=== PATIENT | male | born 1940 | race Caucasian/White ===

== ENCOUNTER 2017-07-03 17:52 | Emergency (ER) | payer OTHER ==
[2017-07-03 17:59] VITALS: RESP 16; TEMP 98.6
--- NOTE | 2017-07-03 18:21 | EDPHY ---
H & P Smoking Status: Former smoker Time Seen by Provider: 07/03/17 18:03 HPI/ROS: CHIEF COMPLAINT: Painful rash left leg x3 days HISTORY OF PRESENT ILLNESS: 76-year-old male in the ER via private vehicle complaining of painful rash to his left lower extremity for the past 3 days. No trauma. No new new paresthesia or sensory motor deficit as he has a history of chronic peripheral neuropathy. No intraoral lesions. No new medications. No genitalia lesions. No nausea vomiting or diarrhea. No ocular irritation. No chest pain no. No gingival bleeding. No melena or hematochezia. No genitalia rash. No urinary abnormality PRIMARY CARE PROVIDER: [facility] REVIEW OF SYSTEMS: A ten point review of systems was performed and is negative with the exception of the items mentioned in the HPI PAST MEDICAL & SURGICAL HISTORY: peripheral neuropathy SOCIAL HISTORY:nonsmoker PHYSICAL EXAM (Prior to examination, patient consented to physical exam, hands were washed and my usual and customary physical exam procedures followed) 1) GENERAL: Well-developed, well-nourished, alert and oriented. Appears to be in no acute distress. 2) HEAD: Normocephalic, atraumatic 3) HEENT: Pupils equal, round, reactive to light bilaterally. Sclera anicteric. No injection. Nasopharynx, oropharynx, clear, no lesions. 4) NECK: Full range of motion, no meningeal signs. 5) LUNGS: Clear auscultation bilaterally, no wheezes, no rhonchi, no retractions. 6) HEART: Regular rate and rhythm, no murmur, no heave, no gallop. 7) ABDOMEN: No guarding, no rebound, no focal tenderness, 8) MUSCULOSKELETAL: Moving all extremities 9) BACK: no visual or palpable abnormality. 10) SKIN: Left lower extremity: Patient has a nonblanching vasculitic appearing circumferential rash which is tender extending from the foot to the knee. Does not followed dermatomal distribution. Nonpruritic. Soft compartments. Does not appear consistent with cellulitis. Distal DP PT pulses present and brisk. Patient refuses to remove his pants and I am unable to evaluate past level of his knee. He does show me his contralateral leg to the level of the knee and this has no lesion. 11) Psychiatric: Patient is oriented X 3, there is no agitation. DIFFERENTIAL DIAGNOSIS: in no particular include but limited to infectious etiology, zoster, Garg-Vinay, vasculitis, endocarditis (Jose Carson) Constitutional: Initial Vital Signs Temperature (C) 37.0 C 07/03/17 17:57 Heart Rate 85 07/03/17 17:57 Respiratory Rate 16 07/03/17 17:57 Blood Pressure 134/84 H 07/03/17 17:57 O2 Sat (%) 98 07/03/17 17:57 O2 Delivery Mode Room Air Allergies/Adverse Reactions: clarithromycin [From Biaxin] Allergy (Verified 08/08/11 15:41) Home Medications: Medication Instructions Recorded Lanolin Alcohol/Mo/W.pet/[place] 1 cecile TP BID #115 cream..g. 07/03/17 [Eucerin Creme] MDM/Departure - MDM ED Course/Re-evaluation: This patient was also seen exam by secondary supervising physiician Dr. Kevin Bateman. No chest pain, dyspnea. Doubt endocarditis. (Jose Carson Liudmila) I also saw the patient in the emergency department. We reviewed the history of the rash in recent medications or illness. Examination shows what appears to be a vasculitis of a mostly flat capillary petechial type rash on the left lower leg to the knee. No other rash. Care is discussed with PA while the patient is in the department. We discussed treatment plan and importance of follow-up. (Kevin Bateman) - Depart Disposition: Home, Routine, Self-Care Clinical Impression: Rash Condition: Good Instructions: Acute Rash (ED) Additional Instructions: Return to emergency department if you developed worsening rash, if you develop rash or tenderness in your mouth, your eyes, vomiting, diarrhea, rash on your genitals or any other symptoms that concern you. Prescriptions: Lanolin Alcohol/Mo/W.pet/Acworth [Eucerin Creme] 1 cecile TP BID #115 cream..g. Referrals: [facility] [Other] - 07/06/17
[2017-07-03 19:08] LABS: % IMMATURE GRANULYOCYTES 0.2 % (0.0-1.1); ABSOLUTE IMMATURE GRANULOCYTES 0.01 10^3/uL (0.00-0.10); ADD DIFF? NO; ADD MORPH? NO; ADD SCAN? NO; ATYPICAL LYMPHOCYTE FLAG 60 (0-99); FRAGMENT RBC FLAG 0 (0-99); HEMATOCRIT 38.5 % (40.0-51.0); HEMOGLOBIN 13.4 g/dL (13.7-17.5); LEFT SHIFT FLG 0 (0-99); LIPEMIA HEMOLYSIS FLAG 90 (0-99); MEAN CELL HEMOGLOBIN 31.8 pg (27.9-34.1); MEAN CELL HEMOGLOBIN CONCENTR. 34.8 g/dL (32.4-36.7); MEAN CELL VOLUME 91.4 fL (81.5-99.8); MEAN PLATELET VOLUME 8.8 fL (8.7-11.7); PLATELET CLUMPS FLAG 0 (0-99); PLATELET COUNT 195 10^3/uL (150-400); RED BLOOD CELL COUNT 4.21 10^6/uL (4.40-6.38); RED CELL DISTRIBUTION WIDTH 13.1 % (11.5-15.2)
[2017-07-03 19:16] LABS: INR 1.13 (0.83-1.16); PROTIME(PATIENT) 14.4 SEC (12.0-15.0)
[2017-07-03 19:24] LABS: ALANINE AMINOTRANSFERASE 23 IU/L (21-72); ALKALINE PHOSPHATASE 65 IU/L (38-126); ANION GAP 11 mEq/L (8-16); ASPARTATE AMINOTRANSFERASE 17 IU/L (17-59); BILIRUBIN,TOTAL 0.4 mg/dL (0.1-1.4); BILIRUBIN-CONJUGATED 0.2 mg/dL (0.0-0.5); BILIRUBIN-UNCONJUGATED 0.2 mg/dL (0.0-1.1); CALCIUM 9.2 mg/dL (8.5-10.4); CARBON DIOXIDE 24 mEq/l (22-31); CHLORIDE 101 mEq/L (97-110); CREATININE 1.2 mg/dL (0.7-1.3); GLOMERULAR FILTRATION RATE 59; GLUCOSE 96 mg/dL (70-100); POTASSIUM 4.2 mEq/L (3.5-5.2); SEDIMENTATION RATE 9 MM/HR (0-20); SODIUM 136 mEq/L (134-144); TOTAL PROTEIN 6.3 g/dL (6.3-8.2)
[2017-07-03 20:08] VITALS: BP 141/86; PULSE 86; O2SAT 97
== END 2017-07-03 20:05 | disposition home or self-care (01) ==
DX: R21 Rash and other nonspecific skin eruption (principal); Z87.891 Personal history of nicotine dependence

== ENCOUNTER 2017-07-16 15:22 | Emergency (ER) | payer OTHER ==
[2017-07-16] MEDS ORDERED: HYDROCODONE/APAP 5/325 TAB ONE ×2 (16:24)
[2017-07-16] MEDS ORDERED: HYDROCODONE/APAP 5/325 TAB PO ONE (16:25)
[2017-07-16 16:40] LABS: % IMMATURE GRANULYOCYTES 0.3 % (0.0-1.1); ABSOLUTE IMMATURE GRANULOCYTES 0.02 10^3/uL (0.00-0.10); ADD DIFF? NO; ADD MORPH? NO; ADD SCAN? NO; ATYPICAL LYMPHOCYTE FLAG 20 (0-99); FRAGMENT RBC FLAG 0 (0-99); LEFT SHIFT FLG 0 (0-99); LIPEMIA HEMOLYSIS FLAG 90 (0-99); MEAN CELL HEMOGLOBIN 32.3 pg (27.9-34.1); MEAN CELL HEMOGLOBIN CONCENTR. 35.1 g/dL (32.4-36.7); MEAN PLATELET VOLUME 8.9 fL (8.7-11.7); PLATELET CLUMPS FLAG 20 (0-99); PLATELET COUNT 191 10^3/uL (150-400); RED BLOOD CELL COUNT 4.02 10^6/uL (4.40-6.38); RED CELL DISTRIBUTION WIDTH 13.6 % (11.5-15.2)
[2017-07-16 17:01] LABS: ANION GAP 11 mEq/L (8-16); CALCIUM 8.9 mg/dL (8.5-10.4); CARBON DIOXIDE 21 mEq/l (22-31); CHLORIDE 104 mEq/L (97-110); CREATININE 1.2 mg/dL (0.7-1.3); GLOMERULAR FILTRATION RATE 59; GLUCOSE 95 mg/dL (70-100); POTASSIUM 4.6 mEq/L (3.5-5.2); SODIUM 136 mEq/L (134-144)
--- NOTE | 2017-07-16 17:29 | EDPHY ---
H & P Stated Complaint: left leg swelling and pain Time Seen by Provider: 07/16/17 15:54 HPI/ROS: CHIEF COMPLAINT: Left calf pain and swelling HISTORY OF PRESENT ILLNESS: The patient presents to the ED with a several week history of left calf pain and swelling. The patient reportedly had a nonspecific rash to the lower extremity several weeks ago. He reportedly was seen at [facility] and had unremarkable laboratory testing done. He presents today secondary to ongoing pain. He denies chest pain or shortness of breath. He denies fever cough or congestion. The patient has not had regular follow-up with a primary care provider. He takes no regular medications. He does report a prior history of neuropathy. REVIEW OF SYSTEMS: A comprehensive 10 point review of systems is otherwise negative aside from elements mentioned in the history of present illness. Source: Patient - Personal History Current Tetanus Diphtheria and Acellular Pertussis (TDAP): Yes - Medical/Surgical History Hx Asthma: No Hx Chronic Respiratory Disease: Yes Hx Diabetes: No Hx Cardiac Disease: No Hx Renal Disease: No Hx Cirrhosis: No Hx Alcoholism: No Hx HIV/AIDS: No Hx Splenectomy or Spleen Trauma: No Other PMH: COPD. neuropathy - Social History Smoking Status: Former smoker - Physical Exam Exam: General Appearance: Elderly male, no acute distress Eyes: Pupils equal and round no pallor or injection ENT, Mouth: Mucous membranes moist Respiratory: There are no retractions, lungs are clear to auscultation Cardiovascular: Regular rate and rhythm Gastrointestinal: Abdomen is soft and nontender, no masses, bowel sounds normal Neurological: A&O, normal motor function, normal sensory exam, normal cranial nerves Skin: Faint rash consistent with vasculitis left lower extremity Musculoskeletal: Neck is supple nontender Extremities: Slight asymmetric calf tenderness, swelling and edema Constitutional: Initial Vital Signs Temperature (C) 36.6 C 07/16/17 15:35 Heart Rate 81 07/16/17 15:35 Respiratory Rate 16 07/16/17 15:35 Blood Pressure 157/97 H 07/16/17 15:35 O2 Sat (%) 98 07/16/17 15:35 O2 Delivery Mode Room Air Allergies/Adverse Reactions: clarithromycin [From Biaxin] Allergy (Verified 08/08/11 15:41) Home Medications: Medication Instructions Recorded Lanolin Alcohol/Mo/W.pet/[place] 1 cecile TP BID #115 cream..g. 07/03/17 [Mandy Beckman] Medical Decision Making - Diagnostics Imaging Results: Imaging Impressions Extremity Venous Study 07/16/17 17:23 Impression: No evidence of deep vein thrombosis. Findings discussed with Ezra Santillan 07/16/2017 at 17:54. ED Course/Re-evaluation: The patient presents to the ED for evaluation of left calf pain and swelling with a very nonspecific rash. The patient's D-dimer was slightly elevated. A stat lower extremity ultrasound has been ordered. The patient has no clinical evidence of arterial insufficiency or an infectious process. The patient was taken for a lower extremity ultrasound which is negative for DVT. At this point time I do feel the patient can manage his symptoms with Tylenol and ibuprofen. He has been referred to our on-call primary care provider he wishes to establish primary care. Recommendations are made for a repeat ultrasound in 2 weeks for any ongoing symptoms. Differential Diagnosis: Differential diagnosis considered includes DVT, cellulitis, vasculitis, abscess , arterial insufficiency - Data Points Laboratory Results: Laboratory Results 07/16/17 16:30 07/16/17 16:30 07/16/17 07/16/17 07/16/17 16:30 16:30 16:30 WBC 6.54 10^3/uL 10^3/uL (3.80-9.50) RBC 4.02 10^6/uL L 10^6/uL (4.40-6.38) Hgb 13.0 g/dL L g/dL (13.7-17.5) Hct 37.0 % L % (40.0-51.0) MCV 92.0 fL fL (81.5-99.8) MCH 32.3 pg pg (27.9-34.1) MCHC 35.1 g/dL g/dL (32.4-36.7) RDW 13.6 % % (11.5-15.2) Plt Count 191 10^3/uL 10^3/uL (150-400) MPV 8.9 fL fL (8.7-11.7) Neut % (Auto) 62.0 % % (39.3-74.2) Lymph % (Auto) 28.0 % % (15.0-45.0) [place] % (Auto) 6.0 % % (4.5-13.0) Eos % (Auto) 2.6 % % (0.6-7.6) Baso % (Auto) 1.1 % % (0.3-1.7) Nucleat RBC Rel Count 0.0 % % (0.0-0.2) Absolute Neuts (auto) 4.06 10^3/uL 10^3/uL (1.70-6.50) Absolute Lymphs (auto) 1.83 10^3/uL 10^3/uL (1.00-3.00) Absolute Monos (auto) 0.39 10^3/uL 10^3/uL (0.30-0.80) Absolute Eos (auto) 0.17 10^3/uL 10^3/uL (0.03-0.40) Absolute Basos (auto) 0.07 10^3/uL 10^3/uL (0.02-0.10) Absolute Nucleated RBC 0.00 10^3/uL 10^3/uL (0-0.01) Immature Gran % 0.3 % % (0.0-1.1) Immature Gran # 0.02 10^3/uL 10^3/uL (0.00-0.10) D-Dimer 0.67 ug/mLFEU H ug/mLFEU (0.00-0.50) Sodium 136 mEq/L mEq/L (134-144) Potassium 4.6 mEq/L mEq/L (3.5-5.2) Chloride 104 mEq/L mEq/L (97-110) Carbon Dioxide 21 mEq/l L mEq/l (22-31) Anion Gap 11 mEq/L mEq/L (8-16) BUN 25 mg/dL H mg/dL (7-23) Creatinine 1.2 mg/dL mg/dL (0.7-1.3) Estimated GFR 59 Glucose 95 mg/dL mg/dL (70-100) Calcium 8.9 mg/dL mg/dL (8.5-10.4) Medications Given: Discontinued Medications Hydrocodone Bitart/Acetaminophen (Rowley 5/325) 2 tab PO EDNOW ONE Stop: 07/16/17 16:26 Last Admin: 07/16/17 16:26 Dose: 2 tab Departure - Departure Disposition: Home, Routine, Self-Care Clinical Impression: Leg pain, left Condition: Good Instructions: Leg Pain (ED) Additional Instructions: 1. Tylenol and ibuprofen as needed for pain. 2. I do recommend establishing care with a primary care provider. You have been provided the contact number for our on-call outpatient primary care physician. 3. We recommend a repeat ultrasound in 2 weeks for any ongoing calf pain or swelling. 4. Please return to the emergency department for markedly worsening symptoms, fever, pain, numbness or weakness. Referrals: Kavita Gotti MD [[facility] Primary Care Provider] - As per Instructions
[2017-07-16 18:15] VITALS: BP 147/68; PULSE 78; RESP 18; TEMP 98.2; O2SAT 96
== END 2017-07-16 18:15 | disposition home or self-care (01) ==
DX: M79.662 Pain in left lower leg (principal); J44.9 Chronic obstructive pulmonary disease, unspecified; Z87.891 Personal history of nicotine dependence

== ENCOUNTER 2018-02-12 22:09 | Inpatient (IN) | payer OTHER, MEDICAID ==
[2018-02-12] MEDS ORDERED: NS 1,000 ML IV ONE ×2 (22:15→23:00)
--- NOTE | 2018-02-12 22:15 | EDPHY ---
H & P Time Seen by Provider: 02/12/18 22:14 HPI/ROS: HPI CHIEF COMPLAINT: Found down, global generalized weakness, right rib pain, abdominal pain HISTORY OF PRESENT ILLNESS: This patient is a 77-year-old male, history of COPD , presents emergency room by EMS for global weakness and being found down. Patient was found on the ground in the bathroom. Unclear exactly how long he was down but it is reported he was possibly down in the bathroom since early this morning around 7:00 a.m. Or over 12 hrs ago. The patient presents to the emergency room is noted to be tachycardic and hypoxic, he is complaining of right lateral rib pain and diffuse abdominal pain. Additionally he is globally weak is unable to sit up or move. He is able to move all his extremities but is really unable to lift them off the bed. He denies any chest pain or shortness of breath. He denies vomiting. It is unclear if he fell however he states that he was so weak he may have sat down in the bathroom. Of note upon arrival to the emergency room is noted his heart rate is in the 130s, he is hypoxic to 87% on room air. Past Medical History: COPD., ?heart Disease Past Surgical History: No recent surgery Social History: Lives by himself locally. No family at bedside. Denies alcohol drugs or tobacco. Family History: Noncontributory ROS REVIEW OF SYSTEMS: Limited due to patient's mental state, clinical condition. Exam Constitutional elderly, frail, thin appearing, dehydrated triage nursing summary reviewed, vital signs reviewed, awake/alert. Vital signs noted at triage hypoxic and tachycardic Eyes normal conjunctivae and sclera, EOMI, PERRLA. HENT normal inspection, atraumatic, dry mucus membranes, no epistaxis, neck supple/ no meningismus, no raccoon eyes. Respiratory clear to auscultation bilaterally, normal breath sounds, no respiratory distress, no wheezing. Cardiovascular chest wall: Mild tender palpation right lateral chest wall, tachycardia, regular rhythm, no murmur, no edema, distal pulses normal. Gastrointestinal tender palpation diffusely in the abdomen, somewhat distended. Genitourinary no CVA tenderness. Musculoskeletal no midline vertebral tenderness, full range of motion, no calf swelling, no tenderness of extremities, no meningismus, good pulses, neurovascularly intact. Skin pink, warm, & dry, no rash, skin atraumatic. Neurologic globally weak, moves everything, awake, alert and oriented x 3, AAOx3, moves all 4 extremities equally, motor intact, sensory intact, CN II-XII intact, normal cerebellar, normal vision, soft-spoken. Psychiatric normal mood/affect. Heme/Lymph/Immune no lymphadenopathy. Differential Diagnosis: Includes but is not limited to in a particular order acute traumatic injury to the chest, rib fracture, pneumothorax, PE, pneumonia, sepsis, bacteremia, solid organ injury in the abdomen, dehydration, electrolyte disturbance, rhabdomyolysis, sepsis, acute IN, stroke, intracranial bleed, COPD , hypoxic Medical Decision Making: Plan for this patient rather large workup for patient being found down is a very poor historian. He will need to proceed with CT scan head without contrast for trauma, CT chest abdomen pelvis with IV contrast for trauma, chest x-ray, EKG, troponin, electrolytes, urinalysis, fluid bolus, blood cultures, lactic acid. Patient noted be tachycardic upon arrival in the 130s, hypoxic. Be placed on supplemental oxygen. Patient need to be admitted to the hospital. Re-evaluation: EKG interpretation by me on record in [employer] system. Impression time of EKG 2216, sinus tachycardia rate of 129 I do not appreciate [address] elevation or significant ST depression. ED x-ray chest one view: This shows significant free air on upright chest x- ray and a both diaphragms. 2305: Due to this significant amount of free air on the upright chest x-ray did consult surgery Dr. Alejandra. I have ordered IV Invanz. The patient's creatinine is too high for CT scan with contrast type switched scans to noncontrast. He will have a CT scan chest abdomen pelvis without contrast. 2343: Free air seen on the upright chest x-ray. Dr. Alejandra at bedside evaluating patient. IV Invanz has been given. Labs are reviewed he does have acute kidney injury, elevated CK consistent with rhabdomyolysis, he is acutely dehydrated, and has a intra-abdominal perforation. CT scan results are pending. CT scan head negative for acute traumatic injury. CT scan chest abdomen pelvis without contrast this shows significant amount of intra-abdominal free air. On unclear etiology of the free air. But large amount. Critical Care: Total Critical Care Time Spent Managing this Patient: 65 Minutes. This time was spent Exclusively with this patient. This Care was exclusive of procedures. The Organ System/life at risk was intra-abdominal free air from bowel perforation or perforated viscus This Patient was in Critical Condition because rhabdomyolysis, acute kidney injury, intra-abdominal free air Source: Patient, EMS - Medical/Surgical History Hx Asthma: No Hx Chronic Respiratory Disease: Yes Hx Diabetes: No Hx Cardiac Disease: No Hx Renal Disease: No Hx Cirrhosis: No Hx Alcoholism: No Hx HIV/AIDS: No Hx Splenectomy or Spleen Trauma: No Other PMH: COPD. neuropathy - Social History Smoking Status: Former smoker Constitutional: Initial Vital Signs O2 Sat (%) 94 02/12/18 22:10 O2 Delivery Mode Room Air O2 (L/minute) 2 Allergies/Adverse Reactions: clarithromycin [From Biaxin] Allergy (Verified 02/12/18 22:19) Home Medications: Medication Instructions Recorded NK [No Known Home Meds] 02/12/18 Medical Decision Making - Data Points Laboratory Results: Laboratory Results 02/12/18 22:35 02/12/18 22:35 Medications Given: Chlorhexidine Gluconate (Peridex) 15 ml PO Q12@08,20 ELENA Stop: 08/12/18 07:59 Last Admin: 02/13/18 21:21 Dose: 15 ml Ertapenem 0.5 gm/ Sodium (Chloride) 100 mls @ 200 mls/hr IV DAILY@2200 ELENA PRN Reason: Protocol Stop: 03/15/18 21:59 Last Admin: 02/13/18 21:21 Dose: 100 mls Propofol (Diprivan 10 Mg/Ml (Premix)) 100 mls @ 0 mls/hr IV CONT ELENA; Titrate PRN Reason: Protocol Stop: 08/12/18 01:29 Last Admin: 02/13/18 18:16 Dose: 100 mls Fentanyl 1,000 mcg/ Sodium (Chloride) 100 mls @ 0 mls/hr IV CONT ELENA; Per Protocol PRN Reason: Protocol Stop: 02/23/18 08:05 Last Admin: 02/13/18 08:48 Dose: 100 mls Pantoprazole Sodium (Protonix) 40 mg IVP DAILY ELENA Stop: 08/12/18 01:29 Last Admin: 02/13/18 12:29 Dose: 40 mg Discontinued Medications Ertapenem (Invanz) 1 gm IV EDNOW ONE Stop: 02/12/18 23:31 Last Admin: 02/12/18 23:37 Dose: 1 gm Hydromorphone HCl (Dilaudid) 1 mg IVP EDNOW ONE Stop: 02/12/18 23:26 Last Admin: 02/12/18 23:31 Dose: 1 mg Sodium Chloride (Ns) 1,000 mls @ 0 mls/hr IV EDNOW ONE; Wide Open PRN Reason: Protocol Stop: 02/12/18 22:16 Last Admin: 02/12/18 22:45 Dose: 1,000 mls Sodium Chloride (Ns) 1,000 mls @ 0 mls/hr IV ONCE ONE PRN Reason: Wide Open Stop: 02/12/18 23:01 Last Admin: 02/12/18 23:34 Dose: 1,000 mls Ertapenem 1 gm/ Sodium (Chloride) 100 mls @ 200 mls/hr IV EDNOW ONE PRN Reason: Protocol Stop: 02/12/18 23:29 Last Admin: 02/12/18 23:54 Dose: Not Given Sodium Chloride (Ns) 1,000 mls @ 0 mls/hr IV ONCE ONE; Wide Open PRN Reason: Protocol Stop: 02/13/18 00:28 Last Admin: 02/13/18 00:41 Dose: 1,000 mls Lactated Ringer's (Lr) 1,000 mls @ 0 mls/hr IV ONCE ONE PRN Reason: KVO Stop: 02/13/18 01:16 Last Admin: 02/13/18 08:24 Dose: Not Given Pantoprazole Sodium (Protonix) 40 mg IVP BID ELENA Stop: 08/12/18 01:29 Last Admin: 02/13/18 08:24 Dose: Not Given Departure - Departure Disposition: [facility] Clinical Impression: Generalized weakness, Intra-abdominal free air of unknown etiology, BRITNEY (acute kidney injury) Condition: Serious
--- NOTE | 2018-02-12 22:18 | CPEKG ---
Heart Rate: 129 RR Interval: 465 P-R Interval: 120 QRSD Interval: 110 QT Interval: 304 QTC Interval: 446 P [place]: 244 QRS [place]: 266 T Wave [place]: 253 EKG Severity - ABNORMAL ECG - EKG Impression: ECTOPIC ATRIAL TACHYCARDIA EKG Impression: CONSIDER DEXTROCARDIA Electronically Signed By: Fabián Carlos 13-Feb-2018 07:22:47
[2018-02-12] MEDS ORDERED: IOPAMIDOL (ISOVUE 370) 100 ML BTL IV ONE (22:31)
[2018-02-12 22:44] LABS: PLATELET COUNT 295 10^3/uL (150-400)
[2018-02-12] MEDS ORDERED: ERTAPENEM 1 GM in NS 100 ML IV ONE (23:00)
[2018-02-12 23:05] LABS: INR 1.45 (0.83-1.16); PROTIME(PATIENT) 17.8 SEC (12.0-15.0)
[2018-02-12] MEDS ORDERED: HYDROmorphONE/DILAUDID 1 MG/ML INJ ONE (23:15)
[2018-02-12] MEDS ORDERED: HYDROmorphONE/DILAUDID 1 MG/ML INJ IVP ONE (23:25)
[2018-02-12] MEDS ORDERED: ERTAPENEM 1 GM VIAL IV ONE (23:30)
[2018-02-12 23:36] LABS: CREATINE KINASE 5488 IU/L (0-224)
[2018-02-13] MEDS ORDERED: NS 1,000 ML IV ONE (00:27)
[2018-02-13] MEDS ORDERED: ONDANSETRON 4 MG/2 ML VIAL IVP PRN (01:01)
--- NOTE | 2018-02-13 01:13 | PDANEPAE ---
ANE History of Present Illness found down x 12+h, free air in abd ANE Past Medical History - Cardiovascular History Hx Hypertension: No Hx Arrhythmias: No Hx Chest Pain: Yes Hx Coronary Artery / Peripheral Vascular Disease: Yes Hx CHF / Valvular Disease: Yes Hx Palpitations: No - Pulmonary History Hx COPD: Yes Hx Asthma/Reactive Airway Disease: No Hx Recent Upper Respiratory Infection: No Hx Oxygen in Use at Home: No Hx Sleep Apnea: No - Endocrine History Hx Diabetes: No - Neurological & Psychiatric Hx Neurological / Psychiatric History Comment: dementia ANE Review of Systems Review of Systems: - Exercise capacity Exercise capacity: >=4 METS - Systems Gastrointestinal: Reports: abdominal pain ANE Patient History - Allergies Allergies/Adverse Reactions: clarithromycin [From Biaxin] Allergy (Verified 02/12/18 22:19) - Home Medications Home Medications: NK [No Known Home Meds] 02/12/18 [Last Taken Unknown] - NPO status NPO Status: no food or drink >8 hours - Anes Hx Anes Hx: no prior problems - Smoking Hx Smoking Status: Former smoker - Alcohol Use Alcohol Use: Other (unknown) ANE Labs/Vital Signs - Labs Result Diagrams: 02/12/18 22:35 02/12/18 22:35 - Vital Signs Vital Signs: reviewed preoperatively; see RN documention for details Blood Pressure: 170/102 Heart Rate: 109 Respiratory Rate: 18 O2 Sat (%): 95 Height: 177.8 cm Weight: 58.967 kg ANE Physical Exam - Airway Neck exam: FROM Mallampati Score: Class 3 Mouth exam: poor dentition - Pulmonary Pulmonary: no respiratory distress - Cardiovascular Cardiovascular: regular rate and rhythym - ASA Status ASA Status: IV, E ANE Anesthesia Plan Anesthesia Plan: general endotracheal anesthesia Lines/Monitors: arterial line, central line
[2018-02-13] MEDS ORDERED: LR 1,000 ML IV ONE (01:15)
[2018-02-13] MEDS ORDERED: NS 1,000 ML IV SCH (01:15)
[2018-02-13] MEDS ORDERED: LIDOCAINE 2% 5 ML SDV ONE (01:19)
[2018-02-13] MEDS ORDERED: ROCURONIUM 100 MG/10 ML VIAL ONE (01:19)
[2018-02-13] MEDS ORDERED: fentaNYL 100 MCG/2 ML INJ ONE ×2 (01:19→01:55)
[2018-02-13] MEDS ORDERED: PROPOFOL 200 MG/20 ML VIAL ONE (01:19)
--- NOTE | 2018-02-13 01:26 | GHP ---
[f rep st] HISTORY AND PHYSICAL DATE OF ADMISSION: 02/12/2018 ADMITTING DIAGNOSIS: Perforated viscus. HISTORY: The patient is a 77-year-old and a poor historian. The best we can piece together, he was found down after unknown timeframe. He is very close to his son, who is currently in shelter in [facility]. Son calls on a daily basis. When he did not reach his father this morning, he called a friend to go over and check on his father. The friend was tied up throughout the day, and finally came over late in the evening (approximately 12 hours later). At that point, the patient was found down in the bathroom (time frame unknown but 12-36 hours) The patient states he went to the [facility] to eat on Thursday, and was "poisoned." He had an episode of vomiting on Thursday, Thursday and . He does state he has been taking aspirin. There is no history of ulcer disease. He does not go to a doctor with any regularity. There is information that he has been vocalizing desire to recently. SOCIAL HISTORY: He smoked from ages 16 to 31, with what sounds to be a 1-1/2 pack per day rate. He could not quantify how much alcohol he drinks, he said it is relatively little. ALLERGIES: He has no known drug allergies. MEDICATIONS: He does not take any medications. PAST SURGICAL HISTORY: He cannot recall any surgeries, but he thinks he may have had one in the past (unknown). PAST MEDICAL HISTORY: The best of his knowledge, there is no history rheumatic fever, tuberculosis, hepatitis or transfusions. REVIEW OF SYSTEMS: He has had a peripheral neuropathy for the past year and a half. The etiology is unclear. He does go to the [facility] intermittently, but does not recall when he was last there. He was hospitalized at another hospital for pneumonia and it was thought to be in 2016. With further telephone checking with local hospitals, apparently he was in [facility] in 2016, but those records are not available at this time. He does have hearing aids. He has had 2 episodes of chest pain lasting an hour in the last year. He did not want to go to the hospital to get that evaluated. He denies knowledge of any other medical issues. He says that he can usually walk about a mile. PHYSICAL EXAMINATION: GENERAL: He is somewhat confused. He is not a good historian. Part of the information is obtained from his friend, Mr. Savage Perez. This is the person who found him down this evening. HEENT: His skull is normocephalic and atraumatic. NEUROLOGIC: He is awake and oriented to person and place. He seems confused and not able to process information well. I do not detect any focal lateralizing findings. I do not explore the neuropathy question. NECK: Unremarkable. BACK: Unremarkable. LUNGS: Clear to auscultation. CARDIAC: Shows a tachycardia to 109. I do not detect any gallops. ABDOMEN: Tender with cough in the right upper quadrant. It is distended, and tender. He has no detectable bowel sounds. LYMPH NODES: I do not detect any lymphadenopathy. IMAGING: The chest x-ray shows an extensive pneumoperitoneum. A followup CT without contrast (because his creatinine of 2.4) shows extensive pneumoperitoneum and a small amount of fluid in the pelvis. LABORATORY: His white count is 11.2 with 93% neutrophils, hematocrit is 45, platelets 295. INR 1.45. A pH 7.49 with a base excess of -1.1. His lactate is 3.5. EKG shows an atrial tachycardia. His BUN is 63, his creatinine is 2.4. His glucose is 163. His magnesium is 2.5. His bilirubin is 0.9. He was found down and his CK is 5800. His BNP is 2610. IMPRESSION: Patient with pneumoperitoneum, probably due to a perforated peptic ulcer given his fairly benign presentation after 112-36 hours without treatment. I cannot exclude a small bowel perforation. I cannot exclude diverticular perforation. Certainly his time course and his presentation at this time suggests an upper gastrointestinal perforation. He will be taken for exploratory surgery. We had a long discussion as to whether he wished to undergo surgery or just have comfort measures provided. He indicated, after a thoughtful and prolonged consideration, that he wished to go forward with surgery. He understands that he may be treated with an open abdomen. He understands he may have an ostomy. He understands that he has potential for recurrent abdominal abscesses and that he may not survive this hospitalization. /[id number]/MODL MTDD
[2018-02-13] MEDS ORDERED: PANTOPRAZOLE SODIUM 40 MG VIAL IVP SCH (01:30)
[2018-02-13] MEDS ORDERED: ESMOLOL HCL 100 MG/10 ML VIAL IV ONE (02:04)
[2018-02-13] MEDS ORDERED: HYDROmorphONE/DILAUDID 2 MG/ML INJ ONE (02:36)
--- NOTE | 2018-02-13 04:15 | POSTOPPROG ---
Post Op Note Date of Operation: 02/13/18 Surgeon: Leonard Alejandra Anesthesia: GET(General Endotracheal) Pre-op Diagnosis: Pneumopertonium, sepsis, acute renal failure, Rhabdomyolysis Post-op Diagnosis: cecal perforation with peritonitis Indication: Pneumopertonium, sepsis, acute renal failure, Rhabdomyolysis Procedure: right colon resection with antigrade stapled ileocolonic anastomosis Findings: cecal perforation with peritonitis Inf/Abcess present in the surg proc area at time of surgery?: Yes Depth: Organ Space EBL: 50-100 Total fluids administered: 3500 Complications: none Drains: Jose Caballero (in pelvis) Specimen(s): right colon and mesenteric node
--- NOTE | 2018-02-13 04:26 | POSTANESTH ---
Post Anesthetic Evaluation Cardiovascular Status: Similar to Pre-Op Cond Respiratory Status: Requires Airway Assist Level of Consciousness/Mental Status: Unconscious Pain Control: Adequate, Prn Tx Ordered Nausea/Vomiting Control: Adequate, Prn Tx Ordered Complications Possibly Related to Anesthesia: None Noted (instubated/sedated in ICU)
[2018-02-13 04:57] LABS: PLATELET COUNT 258 10^3/uL (150-400)
[2018-02-13 05:03] LABS: INR 1.45 (0.83-1.16); PROTIME(PATIENT) 17.8 SEC (12.0-15.0)
--- NOTE | 2018-02-13 05:34 | CPEKG ---
Heart Rate: 124 RR Interval: 484 P-R Interval: 136 QRSD Interval: 98 QT Interval: 279 QTC Interval: 401 P [place]: 82 QRS [place]: 70 T Wave [place]: -25 EKG Severity - BORDERLINE ECG - EKG Impression: SINUS TACHYCARDIA EKG Impression: BORDERLINE T ABNORMALITIES, INFERIOR LEADS Electronically Signed By: Fabián Carlos 13-Feb-2018 07:22:47
--- NOTE | 2018-02-13 06:45 | PDMN ---
Medical Necessity Medical necessity: C/M review: est. > 2 MN LOS for eval and TX of acute pneumoperitoneum seen on CT, sepsis, acute renal failure, rhabdomyolysis requiring 02/13/2018 emergent surgery - right colon resection with antegrade stapled ileocolonic anastomosis - Inpatient only surgery per Medicare guidelines , findings: cecal perforation with peritonitis requiring postop ongoibng NPO, NG tube to suction, mechanical ventilation, IV Ertapenem, IV Protonix, IV Diprivan infusion IV fluids per H/P, surgery postop report.
[2018-02-13] MEDS: CHLORHEXIDINE GLUCONATE 15 ML UDL PO SCH ×2 (08:00→21:21)
[2018-02-13] MEDS ORDERED: NARCOTIC DRIP BAG-TOTAL ALL TYPES IV PRN (08:06)
[2018-02-13 08:27] LABS: PLATELET COUNT 256 10^3/uL (150-400)
--- NOTE | 2018-02-13 09:22 | SOAPPROG ---
SOAP Progress Note Assessment/Plan: POD#0 02/13/2018 Assessment: The patient is responding to discussion with facial expressions. Cardiac- sinus tachycardia, troponin decreasing, EKG unchanged, Echo results pending, not requiring pressors and pulse pressure not narrowed (BP 121/67), Mild increase in AST probably due to hypoperfusion yesterday while down. Sepsis- WBC up to 15.3, afebrile, LIBRA drainage is serous, on Invanz, no wound drainage. Minimal NG output/ +/- bowel sounds Renal- making urine at > 30cc/hr, urine not red, cr decreased from 2.4 to 2.0 but BUN still up ( 63 to 60), Lactate now normal Pulmonary- Vent adjustments have brought PCO2 down to 39, now on AC. Has a mild metabolic acidosis. Plan: Maintain ventilatory support Continue Invanz Follow lab results Continue Dee to monitor I&O closely Subjective: Intubated Objective: Vital Signs Temp Pulse Resp BP Pulse Ox 36.5 C 124 H 18 121/67 H 97 02/13/18 06:00 02/13/18 07:42 02/13/18 08:00 02/13/18 08:00 02/13/18 08:00 Laboratory Results 02/13/18 07:52 02/13/18 07:52 02/12/18 02/13/18 02/14/18 05:59 05:59 05:59 Intake Total 2000 Output Total 165 50 Balance 1835 -50 PT 17.8 SEC (12.0-15.0) H 02/13/18 04:30 INR 1.45 (0.83-1.16) H 02/13/18 04:30 - Time Spent With Patient Time Spent With Patient: 35 - Pending Discharge Pending Discharge Within 24 Hours: No Pending Discharge Within 48 Hours: No Physical Exam - Physical Exam General Appearance: other (intubated) Neck: full range of motion, supple Respiratory: chest non-tender, lungs clear, normal breath sounds, other (ET rtube in good location. Possibly could be advanced 1.5 cm.) Cardiac/Chest: tachycardia, other (No gallop) Abdomen: other (Incision without drainage, mildly tender to palpation, rare bowel sounds, LIBRA has serous drainage) Male Genitalia: other (Foreskin reduced) Rectal: deferred Back: Normal inspection Skin: normal color, warm/dry Extremities: normal range of motion, non-tender Neuro/Psych: other (intubated, seems to respond to speak with eye opening and facial expressions) ICD10 Worksheet Patient Problems: Problems Problem Status Onset BRITNEY (acute kidney injury) Acute Generalized weakness Acute Intra-abdominal free air of unknown etiology Acute
--- NOTE | 2018-02-13 09:49 | ECHO ---
[email or web address] [address] [address] Main: [phone] Fax: Transthoracic Echocardiogram Name: ROSALINDA HENDERSON MR#: [id number] Study Date: 02/13/2018 Study Time: 07:45 AM Date of : 1940 Age: 77 year(s) Height: ( ) Weight: ( ) BSA: Gender: Male Examination: Echo Indication: elevated bnp Image Quality: Contrast: Requested by: Leonard Alejandra BP: / Heart Rate: Rhythm: Indication: elevated bnp Procedure Staff Academic Dean: Kayla Pollock RDCS Reading Physician: Requesting Provider: Measurements: Chambers Valvular Assessment AV/MV Valvular Assessment TV/PV Normal Normal Normal Name Value Range Name Value Range Name Value Range Visual EF: 60 % Continued Measurements: Findings: Left Ventricle: Normal size left ventricle. Normal global systolic LV function. The ejection fraction is visually estimated to be 60 %. No regional wall motion abnormality. Exam Comments: Very technically limited exam. Patient is very thin and supine and on ventilator. Almost no windows seen, bandages on subcostal area. Limited valvular evaluation. (No Signature Object) Patient: ROSALINDA HENDERSON Study Date: 02/13/2018 Page 1 of 1 07:45 AM [id number]
--- NOTE | 2018-02-13 10:27 | GOP ---
[f rep st] OPERATIVE REPORT DATE OF OPERATION: 02/13/2018 SURGEON: Leonard Alejandra MD ANESTHESIA: General endotracheal augmented with an A-line and NG tube placement. PREOPERATIVE DIAGNOSIS: Pneumoperitoneum, sepsis, acute renal failure, rhabdomyolysis. POSTOPERATIVE DIAGNOSIS: 1. Cecal perforation with peritonitis (no evidence of neoplasia). 2. Ilial mesenteric calcified lymph node. PROCEDURE PERFORMED: Right colon resection with antegrade stapled ileocolonic anastomosis with suture reinforcement and excisional biopsy of the mesenteric node, peritoneal lavage with over 3500 cc. A LIBRA drain was placed in the pelvis. It is led out through the right lower quadrant. FINDINGS: Cecal perforation, calcified lymph node. INDICATIONS: Pneumoperitoneum, sepsis, acute renal failure and rhabdomyolysis. DESCRIPTION OF PROCEDURE: The patient is intubated on the gurney. He is then transferred to the operating table. A right radial A-line is placed. A Dee catheter was positioned. A surgical time out has been carried out and agreed to by all members of the operative team. He is carefully clipped, prepped, and draped. A vertical midline incision is started to the left of the xiphoid process, continued in the midline to the level of the umbilicus, and taken to the left of the umbilicus. The subcutaneous tissue was divided with Bovie electrocautery. The fascia was divided in the midline with Bovie electrocautery. The peritoneum was entered and divided with Bovie electrocautery, with protection of the subjacent viscera with my hand. There is no distinct foul smell identified on opening the abdomen. This led me to believe that this is most probably an acid peptic process. A Bookwalter retractor was brought to the table. The left lobe of the liver was mobilized. The NG tube position was confirmed in the stomach. Stomach was carefully examined on its anterior surface. There was no evidence of perforation. The duodenum was mobilized in the right lateral aspect. It is completely inspected. There was no evidence of duodenal perforation. The lesser sac was entered, and again no evidence of perforation. The lesser sac was entered by going through the gastrocolic omentum with the Harmonic scalpel. The incision was extended inferiorly. Further evaluation shows that there is an enlarged cecum (stool or tumor) and a small area of perforation. The wound edges are carefully protected. Lap tapes were placed. Interrupted sutures of # 3-0 GI silk were used to close the defect to prevent further leakage. The terminal ileum was transected approximately 4 cm from the ileocecal valve with an oblique placement of an Endo-KATHRIN stapler. The right transverse colon is carefully cleared circumferentially and also transected with a linear stapler. The colon was now mobilized along the white line of Toldt and reflected medially. The right colon mesentery was carefully divided with the Harmonic scalpel. It is divided down to the right colic vessels, which were carefully clamped doubly. The vessels were divided with the Harmonic scalpel. Two ties of #2-0 silk were used to secure the vessels. The specimen was removed and subsequently opened on a back table. Extensive irrigation was carried out at this time. Hemostasis was found to be excellent. Gloves were changed. The specimen was opened on a back table. The cecum was full of stool, but there was no neoplasia. Note is made on re-examining the distal ileum there is a nodule in the mesentery of the terminal ileum, which is carefully elevated and resected using Harmonic scalpel, and sent as a separate specimen. An antegrade anastomosis was carefully planned. Antimesenteric edge of the end of the terminal ileum was sutured to the tenia of the transverse colon. Manan clamps were placed proximally and distally, after the bowel has been carefully milked of its contents in the appropriate directions. Along the antimesenteric border of the small bowel, the Bovie (set at 10 watt seconds) is used to enter the intestine. The small arm of thelinear stapler was placed. The cecum was entered along the tenia. The large anvil was placed. The stapler was fired, creating an anastomosis. It was left in place for a full 2 minutes. It is now removed and the staple line was inspected. There was no evidence of bleeding. Allis clamps were placed across the edges of the resultant opening to close it. It is now elevated. The opening was closed so that the anastomosis will be triangular in nature without compromising intestine lumen. The TA 60 is used. It is carefully fired. The tissue distal to the staple line was resected. The stapler was removed. Irrigation was carried out. The staple line was reinforced along the end of the cecum, as well as the anastomotic staple line, with interrupted sutures of #3-0 GI silk. This resulted in excellent lumen for the anastomosis and a good, firm anastomosis. No obvious leakage. The mesenteric deflect was closed with a running suture of #2-0 Vicryl. Extensive irrigation was carried out (total of 3.5 L of fluid). A LIBRA drain was placed in the pelvis and led out through the right lower quadrant. Gowns and gloves were changed. The wound was carefully squared off for a clean closure technique. A running suture of #0 PDS was started at the apex and run to just above the umbilicus. The 2nd one was started inferiorly and run to the same level. The knot is tied so it is buried below the fascia. The subcutaneous tissue was well irrigated. The skin was closed with cadence. A sterile dressings were applied. The patient was transferred to recovery in stable and satisfactory condition. Note that intraoperatively a followup lactate was obtained, which showed that it returned to the normal range. SURGEON: Leonard Alejandra MD /[id number]/MODL MTDD
[2018-02-13] MEDS: PANTOPRAZOLE SODIUM 40 MG VIAL IVP SCH (12:29)
[2018-02-13 13:25] LABS: PLATELET COUNT 215 10^3/uL (150-400)
--- NOTE | 2018-02-13 14:33 | GCON ---
[f rep st] CONSULTATION DATE OF CONSULTATION: 02/13/2018 HISTORY OF PRESENT ILLNESS: This patient is a 77-year-old male who carries a diagnosis of COPD, as w ell as medical noncompliance. He has a son who is incarcerated out of state and when his son could n ot reach him earlier last evening, he had a friend look after him, and he was found on the bathroom f [facility] and brought into the hospital where he was found to be in acute renal failure and had substantia l free air on chest x-ray and subsequent CT scan. He was taken urgently to the operating room by Dr. Alejandra where a necrotic cecum was found. This was resected and underwent primary anastomosis. Ther e was substantial stool in the abdomen and nonspecific fluid, but no obvious pus. This was also evac uated and rinsed quite thoroughly. He returned to the intensive care unit on the ventilator at about 4 am and was relatively stable. No pressors were required, but he did have a sinus tachycardia. In any case, he appeared to be relatively stable after this point. The patient himself was a poor hist orian preoperatively and was unable to give many details about what happened prior to. REVIEW OF SYSTEMS: Otherwise negative. PAST MEDICAL HISTORY: 1. Includes COPD though he apparently quit smoking at age 31. 2. Occasional oxygen requirements for which he has been noncompliant in the past, but it is not ba r if he has oxygen requirement chronically. He has a history of leaving AMA in the past. He also beck s history of neuropathy and possible memory issues on at least 1 previous hospital admission. PAST SURGICAL HISTORY: Includes appendectomy and cataracts. MEDICATIONS: Reportedly none. FAMILY HISTORY: Noncontributory at this time. PHYSICAL EXAM: VITAL SIGNS: He was afebrile. His blood pressure at my exam was 121/67 with a heart rate of about 124, sinus tachycardia, and was mildly sedated on the ventilator with minimal support. GENERAL: He was thin and somewhat cachectic, in no obvious distress. HEENT: Pupils equally round and reactive to light, nonicteric, noninjected. NECK: Appeared to be supple without adenopathy or jugular vein distention. LUNGS: Breath sounds were diminished, but clear to auscultation bilaterally without wheezes, rubs, or rales. HEART: Regular rate and rhythm without obvious murmur. ABDOMEN: Clean dressings. Hypoactive bowel sounds. No evidence of bleeding and was otherwise soft. EXTREMIT IES: Showed no clubbing, cyanosis, or edema. NEUROLOGIC: Grossly nonfocal. SKIN: Warm and dry wi thout evidence of rash. OBJECTIVE DATA: Includes a white count 11.2 on arrival, which increased to 15, is down to 12.5 now. Hematocrit was 45, platelets of 295. INR was 1.45. Most recent blood gas showed a pH 7.37, pCO2 33 , pO2 140, bicarb of 19, saturation 99%. His admission basic metabolic panel shows sodium 140, potas sium 4.0, chloride 98, bicarb of 20 with anion gap 22, BUN 63, creatinine 2.4, glucose 163. Total bi lirubin 1.4, AST 66, ALT 31, alk phos 66, creatine kinase of 5488. Troponin 0.241 with a repeat at 0 .159. BNP of 2610 followed by 2040. Albumin at 3.8, down to 2.5. Urine showed some blood, but no r ed cells and no evidence of infection. Blood cultures were drawn and are pending at this time. Imag ing reports are as above. An echocardiogram was very limited and only reported ejection fraction of about 60%. ASSESSMENT AND PLAN: 1. Perforated cecum for uncertain reasons. Pathology here is still pending. There were no obvious tumors, and he appears to have normal cardiac function, and so the etiology remains unclear. In any case, he has a code existing of course peritonitis and appears to be fairly stable on his current ant ibiotics, and has an NG tube in place. This is all being managed by Dr. Alejandra. Because of the abdo dennis catastrophe as well as his advanced age, we have elected to leave him on the ventilator for the 1st 24 hours. 2. Acute kidney injury. This is likely due to #1 with possible contributor from rhabdomyolysis. We will continue with IV fluids, which he is getting now. His urine output is excellent at 50 mL/h, an d this should resolve on its own. Should it fail, we can consider further imaging. He has a Dee i n place at this time. 3. Rhabdomyolysis. This typically is worse before it gets better. The level of 5800 is fairly mild , but we will do serial measurements to see that this comes to resolution. 4. Acute respiratory failure with hypoxemia and this again is due to his peritonitis and perforated cecum. We will change him to assist control to minimize his work of breathing compared to IMV, and jon yadi will extubate him early tomorrow morning. 5. Elevated troponin. I think this is more likely subendocardial ischemia and not an acute coronary syndrome, and is already resolving on its own. 6. Elevated BNP. It is difficult to assess his heart function. He may have diastolic disease or ot her problems since the echo was so severely limited. We will continue to monitor this for now, but n o specific action I think is required at this time. A total of about 45 minutes of critical care time was required for this patient. /[id number]/MODL
[2018-02-13] MEDS: PROPOFOL/EMULSION 100 ML IV SCH (18:16)
[2018-02-13] MEDS: ERTAPENEM 0.5 GM in NS 100 ML IV SCH (21:21)
[2018-02-14] MEDS: PROPOFOL/EMULSION 100 ML IV SCH (02:09)
[2018-02-14 05:45] LABS: CREATINE KINASE 1457 IU/L (0-224)
[2018-02-14 06:24] LABS: PLATELET COUNT 165 10^3/uL (150-400)
[2018-02-14] MEDS: CHLORHEXIDINE GLUCONATE 15 ML UDL PO SCH ×2 (09:03→21:48)
[2018-02-14] MEDS: PANTOPRAZOLE SODIUM 40 MG VIAL IVP SCH (09:03)
--- NOTE | 2018-02-14 09:57 | POSTANESTH ---
Post Anesthetic Evaluation Cardiovascular Status: Normal, Stable Respiratory Status: Requires Airway Assist Level of Consciousness/Mental Status: Other, See Comment Pain Control: Adequate, Prn Tx Ordered Nausea/Vomiting Control: Adequate, Prn Tx Ordered Complications Possibly Related to Anesthesia: None Noted (pt HD improving, BNP, CK, and Cr all trending down. remains intubated but on CPAP trial.)
--- NOTE | 2018-02-14 10:42 | SOAPPROG ---
SOAP Progress Note Assessment/Plan: Assessment: 77 yo s/p exploratory laparotomy for perforated cecum. Patient with BRITNEY, rhabdomyolysis, and elevated troponin and BNP findings throughout admission. Patient is getting extubated today Continue Dee for accurate Is and Os and mobility issues. Hopefully out tomorrow NPO for now. Awaiting return of bowel function S: Still has abdominal tenderness O: Laying in bed, on ventilation support, eyes are open, patient nodding yes or no to questions Dressing cdi midline Additional dressing RLQ Tender to palpation L more than right of midline BS hypoactive 02/14/18 10:40 02/14/18 11:17 Objective: Vital Signs Temp Pulse Resp BP Pulse Ox 37.1 C 107 H 12 129/52 H 98 02/14/18 09:00 02/14/18 09:55 02/14/18 09:55 02/14/18 09:00 02/14/18 09:55 Laboratory Results 02/14/18 05:15 02/14/18 05:15 02/13/18 02/14/18 02/15/18 05:59 05:59 05:59 Intake Total 1999 328 Output Total 165 1590 Balance 1835 1698 PT 17.8 SEC (12.0-15.0) H 02/13/18 04:30 INR 1.45 (0.83-1.16) H 02/13/18 04:30 ICD10 Worksheet Patient Problems: Problems Problem Status Onset BRITNEY (acute kidney injury) Acute Generalized weakness Acute Intra-abdominal free air of unknown etiology Acute
--- NOTE | 2018-02-14 12:25 | PDINTPN ---
Telephone Ad Taker Progress Note Assessment/Plan: Assessment/plan: 77 M with history of suboptimal medical compliance found down but conscious for as long as 12 hours, with perforated cecum and peritonitis. He was taken urgently to the OR by Dr. Alejandra who noted contaminated peritoneum with ascites and a necrotic cecum which was resected and closed by primary anastomosis. Antibiotics were started and he was kept on the vent for another 24 hours with hemodynamic stability. * Peritonitis presumed from a ruptured diverticiuli. Currently getting ertapenem and fentanyl drip for pain control. * acute respiratory failure with hypoxia and ventilator management- stable from this perspective and should extubate today * COPD by history, though quit smoking in late s. records indicate no inhalers as outpatient. Duoneb written prn * Rhabdo- mild with peak CK at 5488, now 1457 so resolving * BRITNEY- presented with creatinine 2.4 but now down to 1.7 with an excellent uop. Expect full recovery * Troponin- c/w subendocardial ischemia with ACS * * critical care time 45 minutes 02/14/18 12:25 Subjective: stable overnight and weaning well this am Objective: Vital Signs Temp Pulse Resp BP Pulse Ox 37 C 104 H 10 L 130/51 H 97 02/14/18 11:00 02/14/18 11:00 02/14/18 11:00 02/14/18 11:00 02/14/18 11:00 Laboratory Results 02/14/18 05:15 02/14/18 05:15 02/13/18 02/14/18 02/15/18 05:59 05:59 05:59 Intake Total 1999 3288 Output Total 165 1590 Balance 1835 1698 PT 17.8 SEC (12.0-15.0) H 02/13/18 04:30 INR 1.45 (0.83-1.16) H 02/13/18 04:30 Physical Exam - Physical Exam General Appearance: no apparent distress, thin EENT: PERRL/EOMI Neck: supple Respiratory: lungs clear, normal breath sounds, No respiratory distress, No accessory muscle use Cardiac/Chest: normal peripheral pulses, regular rate, rhythm, No edema Abdomen: non-tender, soft, other (dressings dry and clean), No distended Skin: normal color, warm/dry, No cyanosis Lymphatic: no adenopathy Extremities: No pedal edema Neuro/Psych: No abnormal official court interpreter II-XII ICD10 Worksheet Patient Problems: Problems Problem Status Onset BRITNEY (acute kidney injury) Acute Generalized weakness Acute Intra-abdominal free air of unknown etiology Acute
[2018-02-14] MEDS: IPRATROPIUM/ALBUTEROL 3 ML DEYVIAL IH PRN (14:31)
--- NOTE | 2018-02-14 16:33 | ASMTCMCOM ---
CM Note CM Note Notes: Chart reviewed also discussed in rounds. 77 year old male admitted through the Ed after being found down at home. He has a son in nursing home in [place] who calls him daily.He was unable to reach him and asked a friend to check on him. He is s/p colectomy after necrotic cecum discovered. Weaning from vent. Needs to be determined. CM to follow. Plan: TBD Date Signed: 02/14/2018 04:32 PM Electronically Signed By:Dagmar Saravia RN
[2018-02-14] MEDS: ERTAPENEM 0.5 GM in NS 100 ML IV SCH (21:47)
[2018-02-15 04:55] LABS: CREATINE KINASE 1123 IU/L (0-224)
[2018-02-15] MEDS ORDERED: PROTOCOL POTASSIUM 1 DOSE MISC PRN (07:44)
[2018-02-15] MEDS ORDERED: PROTOCOL CALCIUM 1 DOSE IV PRN (07:44)
[2018-02-15] MEDS ORDERED: PROTOCOL K PHOSPHATE 1 DOSE IV PRN (07:44)
[2018-02-15] MEDS ORDERED: PROTOCOL MAGNESIUM 1 DOSE IV PRN (07:44)
[2018-02-15 08:33] LABS: PLATELET COUNT 154 10^3/uL (150-400)
--- NOTE | 2018-02-15 09:31 | SOAPPROG ---
SOAP Progress Note Assessment/Plan: POD#0 02/13/2018 Assessment: The patient is responding to discussion with facial expressions. Cardiac- sinus tachycardia, troponin decreasing, EKG unchanged, Echo results pending, not requiring pressors and pulse pressure not narrowed (BP 121/67), Mild increase in AST probably due to hypoperfusion yesterday while down. Sepsis- WBC up to 15.3, afebrile, LIBRA drainage is serous, on Invanz, no wound drainage. Minimal NG output/ +/- bowel sounds Renal- making urine at > 30cc/hr, urine not red, cr decreased from 2.4 to 2.0 but BUN still up ( 63 to 60), Lactate now normal Pulmonary- Vent adjustments have brought PCO2 down to 39, now on AC. Has a mild metabolic acidosis. Plan: Maintain ventilatory support Continue Invanz Follow lab results Continue Torres to monitor I&O closely 02/15/18 09:21 POD#2 Assessment: Patient now communicative. Improving, Afebrile, 111/57 @ 100, Weight up but good urine output labs ordered On clear liquids Poor use of IS Plan: Transfer to Step Down liquids torres out Will ambulate today Adjust medications Subjective: c/o of pain with movement Objective: Vital Signs Temp Pulse Resp BP Pulse Ox 36.8 C 107 H 17 156/74 H 96 02/15/18 08:00 02/15/18 08:00 02/15/18 08:00 02/15/18 08:00 02/15/18 08:00 Laboratory Results 02/15/18 08:22 02/15/18 08:22 02/14/18 02/15/18 02/16/18 05:59 05:59 05:59 Intake Total 3288 808 Output Total 1590 1585 Balance 1698 -777 PT 17.8 SEC (12.0-15.0) H 02/13/18 04:30 INR 1.45 (0.83-1.16) H 02/13/18 04:30 - Time Spent With Patient Time Spent With Patient: 25 - Pending Discharge Pending Discharge Within 24 Hours: No Pending Discharge Within 48 Hours: No Physical Exam - Physical Exam General Appearance: alert, mild distress Neck: non-tender, full range of motion Respiratory: lungs clear (but poor inspiratory effort, IS to 750) Cardiac/Chest: regular rate, rhythm Abdomen: normal bowel sounds, soft (incision remains covered) Male Genitalia: deferred Rectal: deferred Skin: normal color, warm/dry Neuro/Psych: no motor/sensory deficits, alert, normal mood/affect ICD10 Worksheet Patient Problems: Problems Problem Status Onset BRITNEY (acute kidney injury) Acute Generalized weakness Acute Intra-abdominal free air of unknown etiology Acute
[2018-02-15] MEDS: ACETAMINOPHEN 325 MG TAB PO SCH ×3 (10:37→21:19)
[2018-02-15] MEDS: HYDROmorphONE/DILAUDID 2 MG TAB PO PRN ×4 (10:38→21:20)
[2018-02-15] MEDS: PANTOPRAZOLE SODIUM 40 MG VIAL IVP SCH (10:38)
[2018-02-15] MEDS: IBUPROFEN 200 MG TAB PO SCH ×3 (10:38→14:15)
--- NOTE | 2018-02-15 11:10 | PDINTPN ---
Serology Teacher Progress Note Assessment/Plan: Assessment/plan: 77 M with history of suboptimal medical compliance found down but conscious for as long as 12 hours, with perforated cecum and peritonitis. He was taken urgently to the OR by Dr. Alejandra who noted contaminated peritoneum with ascites and a necrotic cecum which was resected and closed by primary anastomosis. Antibiotics were started and he was kept on the vent for another 24 hours with hemodynamic stability. * Peritonitis presumed from a ruptured diverticuli. Currently getting ertapenem with decreasing wbc and no pressors (never needed) * acute respiratory failure with hypoxia and ventilator management- extubated without difficulty. Continue IS/OOB as tolerated * COPD by history, though quit smoking in late s. records indicate no inhalers as outpatient. Duoneb written prn only * Rhabdo- mild with peak CK at 5488, now resolving * BRITNEY- presented with creatinine 2.4 but now down to 1.3 with an excellent uop. Expect full recovery * Troponin- c/w subendocardial ischemia with ACS * Subjective: somewhat confused today Objective: Vital Signs Temp Pulse Resp BP Pulse Ox 36.8 C 104 H 28 H 162/78 H 95 02/15/18 08:00 02/15/18 10:00 02/15/18 10:00 02/15/18 10:00 02/15/18 10:00 Laboratory Results 02/15/18 08:22 02/15/18 08:22 02/14/18 02/15/18 02/16/18 05:59 05:59 05:59 Intake Total 3288 808 Output Total 1590 1585 Balance 1698 -777 PT 17.8 SEC (12.0-15.0) H 02/13/18 04:30 INR 1.45 (0.83-1.16) H 02/13/18 04:30 Physical Exam - Physical Exam General Appearance: alert, no apparent distress, thin EENT: PERRL/EOMI Neck: supple Respiratory: lungs clear, normal breath sounds, decreased breath sounds, No respiratory distress, No accessory muscle use Cardiac/Chest: regular rate, rhythm, No edema Abdomen: soft, guarding, No normal bowel sounds, No non-tender, No rebound Skin: normal color, warm/dry, No cyanosis Lymphatic: no adenopathy Extremities: No pedal edema Neuro/Psych: alert, normal mood/affect, oriented x 3 ICD10 Worksheet Patient Problems: Problems Problem Status Onset BRITNEY (acute kidney injury) Acute Generalized weakness Acute Intra-abdominal free air of unknown etiology Acute
[2018-02-15] MEDS: CHLORHEXIDINE GLUCONATE 15 ML UDL PO SCH ×2 (11:11→22:16)
[2018-02-15] MEDS: METOPROLOL TARTRATE 25 MG TAB PO SCH ×2 (14:19→21:20)
[2018-02-15] MEDS ORDERED: ACETYLCYSTEINE 20% IH/PO 4 ML VIAL ONE (15:18)
[2018-02-15] MEDS: ALBUTEROL 3 ML DEYVIAL IH PRN ×2 (15:23→23:05)
[2018-02-15] MEDS: ACETYLCYSTEINE 20% IH/PO 4 ML VIAL IH SCH ×2 (15:23→23:05)
[2018-02-15] MEDS: ERTAPENEM 1 GM in NS 100 ML IV SCH (21:19)
[2018-02-16 04:37] LABS: PLATELET COUNT 169 10^3/uL (150-400)
[2018-02-16] MEDS: ACETAMINOPHEN 325 MG TAB PO SCH ×4 (04:43→20:55)
[2018-02-16] MEDS: HYDROmorphONE/DILAUDID 2 MG TAB PO PRN ×3 (04:44→15:44)
[2018-02-16 05:04] LABS: CREATINE KINASE 566 IU/L (0-224)
[2018-02-16] MEDS: ACETYLCYSTEINE 20% IH/PO 4 ML VIAL IH SCH ×4 (06:20→23:02)
[2018-02-16] MEDS: IPRATROPIUM/ALBUTEROL 3 ML DEYVIAL IH PRN ×2 (06:20→17:06)
[2018-02-16] MEDS: CHLORHEXIDINE GLUCONATE 15 ML UDL PO SCH ×2 (11:11→20:55)
[2018-02-16] MEDS: METOPROLOL TARTRATE 25 MG TAB PO SCH ×2 (11:21→20:55)
[2018-02-16] MEDS: PANTOPRAZOLE SODIUM 40 MG VIAL IVP SCH (11:21)
[2018-02-16] MEDS ORDERED: HYDROmorphONE/DILAUDID 1 MG/ML INJ IVP ONE (14:00)
--- NOTE | 2018-02-16 14:07 | SOAPPROG ---
SOAP Progress Note Assessment/Plan: POD#0 02/13/2018 Assessment: The patient is responding to discussion with facial expressions. Cardiac- sinus tachycardia, troponin decreasing, EKG unchanged, Echo results pending, not requiring pressors and pulse pressure not narrowed (BP 121/67), Mild increase in AST probably due to hypoperfusion yesterday while down. Sepsis- WBC up to 15.3, afebrile, LIBRA drainage is serous, on Invanz, no wound drainage. Minimal NG output/ +/- bowel sounds Renal- making urine at > 30cc/hr, urine not red, cr decreased from 2.4 to 2.0 but BUN still up ( 63 to 60), Lactate now normal Pulmonary- Vent adjustments have brought PCO2 down to 39, now on AC. Has a mild metabolic acidosis. Plan: Maintain ventilatory support Continue Invanz Follow lab results Continue Torres to monitor I&O closely 02/15/18 09:21 POD#2 Assessment: Patient now communicative. Improving, Afebrile, 111/57 @ 100, Weight up but good urine output labs ordered On clear liquids Poor use of IS Plan: Transfer to Step Down liquids torres out Will ambulate today Adjust medications 02/16/18 13:58 POD#3 Assessment: Palliative care meeting today. Patient to decide course of action. He is DNI/DNR Doing well. He was able to get through last night without further pulmonary support. He is quite deconditioned at this point and is poorly compliant with attempts at pulmonary toilet. He will need rehab Incision clean and dry without evidence of infection. LIBRA out Plan: Follow his wishes when he determines what they are. Subjective: seems slightly confused. Objective: Vital Signs Temp Pulse Resp BP Pulse Ox 36.9 C 106 H 26 H 159/70 H 95 02/16/18 07:58 02/16/18 12:00 02/16/18 12:00 02/16/18 12:00 02/16/18 12:00 Laboratory Results 02/16/18 04:25 02/16/18 04:25 02/15/18 02/16/18 02/17/18 05:59 05:59 05:59 Intake Total 808 1453 Output Total 1585 1925 300 Balance -777 -472 -300 PT 17.8 SEC (12.0-15.0) H 02/13/18 04:30 INR 1.45 (0.83-1.16) H 02/13/18 04:30 - Time Spent With Patient Time Spent With Patient: 25 - Pending Discharge Pending Discharge Within 24 Hours: No Pending Discharge Within 48 Hours: No Physical Exam - Physical Exam General Appearance: alert, mild distress Neck: non-tender, full range of motion, supple Respiratory: chest non-tender, lungs clear (IS only to 250!!, ), normal breath sounds Cardiac/Chest: regular rate, rhythm Abdomen: normal bowel sounds, non-tender, soft, other (incision clean and dry) Male Genitalia: deferred Rectal: deferred Back: Normal inspection Skin: normal color, warm/dry Extremities: normal range of motion, non-tender, normal inspection ICD10 Worksheet Patient Problems: Problems Problem Status Onset BRITNEY (acute kidney injury) Acute Generalized weakness Acute Intra-abdominal free air of unknown etiology Acute
--- NOTE | 2018-02-16 14:27 | PDINTPN ---
Cfo Progress Note Assessment/Plan: Assessment/Plan 77 M with history of suboptimal medical compliance found down but conscious for as long as 12 hours, with perforated cecum and peritonitis. He was taken urgently to the OR by Dr. Alejandra who noted contaminated peritoneum with ascites and a necrotic cecum which was resected and closed by primary anastomosis. Antibiotics were started and he was kept on the vent for another 24 hours with hemodynamic stability. Postextubation he has had problems with hypoxemia and secretions. The patient is contemplating withdrawal of care. * Peritonitis presumed from a ruptured diverticuli. On ertapenem, afebrile, with decreasing wbc and no pressors (never needed) * Acute respiratory failure with hypoxia and ventilator management- extubated without difficulty. Has had problems with secretions and hypoxemia, better today. Continue IS, bronchodilator therapies and mucolytics as tolerated. Needs mobilization. * COPD by history, though quit smoking in late 's, but I am not sure about the accuracy of this diagnosis. On duo nebs and mucolytics. * Rhabdo- mild with peak CK at 5488, now resolving * BRITNEY- presented with creatinine 2.4 but now down to 1.1 with an excellent uop. Resolved * Troponin- c/w subendocardial ischemia with ACS * Advanced directives. The patient clearly is DNR per his written advanced directives. He is contemplating withdrawal of care at this time. We are in discussions with his medical power of corporate associate attorney, friends, and we will be in touch with his sons. He is mentally competent and would have the right to withdraw care if he wants ago in this direction. A palliative care consultation has been obtained. Will continue full supportive care for now until a final decision is made. 55 min of critical care time spent directly with the patient thus far. Multiple discussions throughout the day with multiple individuals including friends, surgery, a POA, psychiatric social worker supervisor, palliative care, nursing, etc. Objective: Vital Signs Temp Pulse Resp BP Pulse Ox 36.9 C 101 H 15 140/64 H 95 02/16/18 07:58 02/16/18 14:00 02/16/18 14:00 02/16/18 14:00 02/16/18 14:00 Laboratory Results 02/16/18 04:25 02/16/18 04:25 02/15/18 02/16/18 02/17/18 05:59 05:59 05:59 Intake Total 808 1453 Output Total 1582 1925 300 Balance -777 -472 -300 PT 17.8 SEC (12.0-15.0) H 02/13/18 04:30 INR 1.45 (0.83-1.16) H 02/13/18 04:30 ICD10 Worksheet Patient Problems: Problems Problem Status Onset BRITNEY (acute kidney injury) Acute Generalized weakness Acute Intra-abdominal free air of unknown etiology Acute
--- NOTE | 2018-02-16 14:33 | ASMTCMCOM ---
CM Note CM Note Notes: Patient has been refusing to be turned, refusing therapy, refused Palliative Consult-"too tired". Met with patient's MPOA [facility] Erick [phone]. [facility] provided patient's Living Will: pt is DNR, DNI, No feeding tube. [facility] reports that patient has had dementia for the past 2yrs with increasing memory difficulties. [facility] also stated that the patient has felt he was dying for some time and ready. That pt does not want to be tx. [facility] spoke to patient today to reaffirm that those were his wishes. A son is coming today from [id number] another son is in fdc in [facility] and [facility] has left a message for him. Patient to continue with tx until the sons can be contacted and all in agreement as to treatment vs comfort. Patient has Medicare & Medicaid # [id number]. Some talk re: Hospice in a SNF. Waiting for sons. Date Signed: 02/16/2018 02:32 PM Electronically Signed By:Alisa Rodriguez LCSW
[2018-02-16] MEDS: ENOXAPARIN 40 MG/0.4 ML SYR SC SCH (15:10)
--- NOTE | 2018-02-16 15:57 | ASMTCMCOM ---
CM Note CM Note Notes: Palliative Care, Sergo reports that patient, after pain medications was much more willing to participate in care: turning in bad and participating in therapies. He wishes to continue tx. Dr Alejandra has explained to him that he can get better and live longer if he chooses to participate in tx. Date Signed: 02/16/2018 03:56 PM Electronically Signed By:Alisa Rodriguez LCSW
[2018-02-16] MEDS: ERTAPENEM 1 GM in NS 100 ML IV SCH (21:33)
[2018-02-16] MEDS: ALBUTEROL 3 ML DEYVIAL IH PRN (23:01)
[2018-02-17] MEDS: ACETAMINOPHEN 325 MG TAB PO SCH ×3 (04:12→17:38)
[2018-02-17 05:13] LABS: CREATINE KINASE 247 IU/L (0-224)
[2018-02-17] MEDS: ACETYLCYSTEINE 20% IH/PO 4 ML VIAL IH SCH ×4 (05:31→23:03)
[2018-02-17] MEDS: ALBUTEROL 3 ML DEYVIAL IH PRN (05:31)
[2018-02-17] MEDS: ENOXAPARIN 40 MG/0.4 ML SYR SC SCH (10:01)
[2018-02-17] MEDS: PANTOPRAZOLE SODIUM 40 MG VIAL IVP SCH (10:01)
[2018-02-17] MEDS: CHLORHEXIDINE GLUCONATE 15 ML UDL PO SCH (10:01)
[2018-02-17] MEDS ORDERED: METOPROLOL TARTRATE 5 MG/5 ML INJ ONE (13:00)
[2018-02-17] MEDS ORDERED: HALOPERIDOL LACT 5 MG/ML INJ ONE (13:00)
[2018-02-17] MEDS ORDERED: HALOPERIDOL LACT 5 MG/ML INJ IVP PRN (13:02)
[2018-02-17] MEDS: METOPROLOL TARTRATE 25 MG TAB PO SCH ×2 (13:02→21:13)
[2018-02-17] MEDS ORDERED: METOPROLOL TARTRATE 5 MG/5 ML INJ IVP ONE (13:02)
[2018-02-17] MEDS: ERTAPENEM 1 GM in NS 100 ML IV SCH (13:03)
[2018-02-17] MEDS ORDERED: D5W 1/4 NS 1,000 ML IV SCH (13:15)
--- NOTE | 2018-02-17 14:25 | PDINTPN ---
Screw Cutter Progress Note Assessment/Plan: Assessment/Plan 77 M with history of suboptimal medical compliance found down but conscious for as long as 12 hours, with perforated cecum and peritonitis. He was taken urgently to the OR by Dr. Alejandra who noted contaminated peritoneum with ascites and a necrotic cecum which was resected and closed by primary anastomosis. Antibiotics were started and he was kept on the vent for another 24 hours with hemodynamic stability. Postextubation he has had intermittent problems with hypoxemia and secretions. The patient was contemplating withdrawal of care. * Peritonitis presumed from a ruptured diverticuli. On ertapenem, afebrile, no pressors (never needed) * Acute respiratory failure with hypoxia and ventilator management- extubated without difficulty. Has had problems with secretions and hypoxemia, better today. Continue IS, bronchodilator therapies and mucolytics as tolerated. Needs mobilization. * COPD by history, though quit smoking in late s. I am not sure about the accuracy of this diagnosis. On duo nebs and mucolytics. * Rhabdo- mild with peak CK at 5488, now resolving * BRITNEY- presented with creatinine 2.4 but now down to 1.1 with an excellent uop. Resolved * Metabolic: Sodium 155. Will start hypertonic fluids. * Troponin- c/w subendocardial ischemia with ACS * Advanced directives. The patient clearly is DNR per his written advanced directives. He continues to vacillate regarding his wishes for treatment and survival over the next several years verses not wanting to be treated and to be allowed to . He has been intermittently refusing treatments, antibiotics, therapies, etc. We are in discussions with his medical power of insurance attorney, friends, and his sons. He is mentally competent and would have the right to withdraw care if he wants ago in this direction. A palliative care consultation has been obtained. Will continue full supportive care for now until a final decision is made. 40 min of critical care time spent directly with the patient thus far. Discussed with surgery, nursing, respiratory, some of the patient's friends, and the ICU multi disciplinary team.. Subjective: More awake, relatively alert, responsive this morning but somewhat confused. Answers are tangential Objective: Vital Signs Temp Pulse Resp BP Pulse Ox 36.9 C 166 H 22 H 113/67 96 02/17/18 12:00 02/17/18 13:02 02/17/18 12:00 02/17/18 13:02 02/17/18 12:00 Laboratory Results 02/17/18 04:40 02/17/18 04:40 02/16/18 02/17/18 02/18/18 05:59 05:59 05:59 Intake Total 1453 Output Total 1925 1275 550 Balance -472 -1275 -550 PT 17.8 SEC (12.0-15.0) H 02/13/18 04:30 INR 1.45 (0.83-1.16) H 02/13/18 04:30 Laboratory Tests 02/17/18 02/17/18 04:40 04:40 Calcium 7.9 L Ionized Calcium 1.07 L Phosphorus 3.5 Magnesium 2.3 CXR: Yesterday afternoon. No focal infiltrates. Physical Exam - Physical Exam General Appearance: obtunded (Arouses, responsive today.), thin EENT: PERRL/EOMI, other (Nasal cannula at 2 L) Neck: normal inspection (No JVD) Respiratory: lungs clear (Anteriorly), decreased breath sounds (At bases bilaterally. Will not take a deep breath for me.), rales (Few rales at bases), No rhonchi (Not present today), No wheezing Cardiac/Chest: tachycardia (Sinus), systolic murmur, No gallop Abdomen: other (Abdomen has a binder in place. Patient reports tenderness. Not deeply palpated. A few bowel sounds are present.) Male Genitalia: other (Dee catheter in place, good urine output) Skin: normal color, warm/dry Lymphatic: no adenopathy Extremities: pedal edema (Trace) Neuro/Psych: no motor/sensory deficits (Moves all extremities equally, appears quite weak globally), cognition abnormalities (Appears to be oriented to person and hospital. Confused at times. Withdrawn at times.) ICD10 Worksheet Patient Problems: Problems Problem Status Onset Generalized weakness Acute Intra-abdominal free air of unknown etiology Acute BRITNEY (acute kidney injury) Acute
[2018-02-17] MEDS ORDERED: ACETAMINOPHEN 650 MG SUPP PR SCH (15:00)
--- NOTE | 2018-02-17 15:07 | SOAPPROG ---
SOAP Progress Note Assessment/Plan: POD#0 02/13/2018 Assessment: The patient is responding to discussion with facial expressions. Cardiac- sinus tachycardia, troponin decreasing, EKG unchanged, Echo results pending, not requiring pressors and pulse pressure not narrowed (BP 121/67), Mild increase in AST probably due to hypoperfusion yesterday while down. Sepsis- WBC up to 15.3, afebrile, LIBRA drainage is serous, on Invanz, no wound drainage. Minimal NG output/ +/- bowel sounds Renal- making urine at > 30cc/hr, urine not red, cr decreased from 2.4 to 2.0 but BUN still up ( 63 to 60), Lactate now normal Pulmonary- Vent adjustments have brought PCO2 down to 39, now on AC. Has a mild metabolic acidosis. Plan: Maintain ventilatory support Continue Invanz Follow lab results Continue Torres to monitor I&O closely 02/15/18 09:21 POD#2 Assessment: Patient now communicative. Improving, Afebrile, 111/57 @ 100, Weight up but good urine output labs ordered On clear liquids Poor use of IS Plan: Transfer to Step Down liquids torres out Will ambulate today Adjust medications 02/16/18 13:58 POD#3 Assessment: Palliative care meeting today. Patient to decide course of action. He is DNI/DNR Doing well. He was able to get through last night without further pulmonary support. He is quite deconditioned at this point and is poorly compliant with attempts at pulmonary toilet. He will need rehab Incision clean and dry without evidence of infection. LIBRA out Plan: Follow his wishes when he determines what they are. 02/17/18 14:58 POD#4 Assessment: Appeared to have aspirated yesterday but breathing is better today and oxygen requirements are markedly decreased. Was tachycardic today but responded to bolus Incision clean and dry, good bowel sounds, + flatus/small stool, no eating well. Will have speach re-assess swallowing capability. Still poorly compliant with pulmonary toilet. Plan: Follow his wishes when he determines what they are. Check Fu CXR in AM Re-assess labs in AM Looking into rehab options Subjective: "pain" Objective: Vital Signs Temp Pulse Resp BP Pulse Ox 36.9 C 111 H 25 H 132/63 H 95 02/17/18 12:00 02/17/18 14:00 02/17/18 14:00 02/17/18 14:00 02/17/18 14:00 Laboratory Results 02/17/18 04:40 02/17/18 04:40 02/16/18 02/17/18 02/18/18 05:59 05:59 05:59 Intake Total 1453 Output Total 1925 1275 550 Balance -472 -1275 -550 PT 17.8 SEC (12.0-15.0) H 02/13/18 04:30 INR 1.45 (0.83-1.16) H 02/13/18 04:30 - Time Spent With Patient Time Spent With Patient: 25 - Pending Discharge Pending Discharge Within 24 Hours: No Pending Discharge Within 48 Hours: No Physical Exam - Physical Exam General Appearance: mild distress Respiratory: lungs clear (still poor effort) Cardiac/Chest: tachycardia Abdomen: normal bowel sounds, non-tender, soft Male Genitalia: deferred Rectal: deferred Back: Normal inspection Skin: normal color, warm/dry (still confused and has trouble making his wishes known) ICD10 Worksheet Patient Problems: Problems Problem Status Onset BRITNEY (acute kidney injury) Acute Generalized weakness Acute Intra-abdominal free air of unknown etiology Acute
[2018-02-17] MEDS: HYDROmorphone HCL/NS 0.5 MG/ML SYR IVP PRN (17:09)
[2018-02-17] MEDS: IPRATROPIUM/ALBUTEROL 3 ML DEYVIAL IH PRN ×2 (17:22→23:03)
[2018-02-17] MEDS ORDERED: D5W 1/2 NS 1,000 ML IV SCH (19:30)
[2018-02-17] MEDS: HYDROmorphONE/DILAUDID 2 MG TAB PO PRN (21:15)
[2018-02-18] MEDS: ACETAMINOPHEN 325 MG TAB PO SCH ×3 (00:36→11:05)
[2018-02-18] MEDS: HYDROmorphone HCL/NS 0.5 MG/ML SYR IVP PRN ×2 (02:39→05:33)
[2018-02-18] MEDS: ACETYLCYSTEINE 20% IH/PO 4 ML VIAL IH SCH ×2 (05:31→10:49)
[2018-02-18] MEDS: IPRATROPIUM/ALBUTEROL 3 ML DEYVIAL IH PRN (05:32)
[2018-02-18 05:39] LABS: PLATELET COUNT 202 10^3/uL (150-400)
[2018-02-18 06:30] LABS: CREATINE KINASE 135 IU/L (0-224)
[2018-02-18] MEDS ORDERED: CALCIUM GLUCONATE 50 ML IV ONE (08:23)
[2018-02-18] MEDS: ERTAPENEM 1 GM in NS 100 ML IV SCH (08:38)
[2018-02-18] MEDS: ENOXAPARIN 40 MG/0.4 ML SYR SC SCH (08:39)
[2018-02-18] MEDS: PANTOPRAZOLE SODIUM 40 MG VIAL IVP SCH (08:39)
[2018-02-18] MEDS: HYDROmorphONE/DILAUDID 2 MG TAB PO PRN (08:55)
[2018-02-18] MEDS: METOPROLOL TARTRATE 25 MG TAB PO SCH (08:55)
[2018-02-18 09:03] VITALS: BP 125/52
--- NOTE | 2018-02-18 11:28 | ASMTCMCOM ---
CM Note CM Note Notes: Patient is interested in inpatient hospice program as expressed to myself and Sergo, palliative care. Dr. Velez consulted and he feels this is an option for patient. Referral sent to [facility]. They will come to visit with patient today. CM will follow. Date Signed: 02/18/2018 11:27 AM Electronically Signed By:Chapis Nolen LCSW
--- NOTE | 2018-02-18 13:30 | PDINTPN ---
Lithographic Proofer Progress Note Assessment/Plan: Assessment/Plan 77 M with history of suboptimal medical compliance found down but conscious for as long as 12 hours, with perforated cecum and peritonitis. He was taken urgently to the OR by Dr. Alejandra who noted contaminated peritoneum with ascites and a necrotic cecum which was resected and closed by primary anastomosis. Antibiotics were started and he was kept on the vent for another 24 hours with hemodynamic stability. Postextubation he has had intermittent problems with hypoxemia and secretions. The patient was contemplating withdrawal of care. * Peritonitis presumed from a ruptured diverticuli. On ertapenem, afebrile, no pressors (never needed) * Acute respiratory failure with hypoxia and ventilator management- extubated without difficulty. Has had problems with secretions and hypoxemia, better today, and probable intermittent aspiration. Continue IS, bronchodilator therapies and mucolytics as tolerated. * COPD by history, though quit smoking in late s. I am not sure about the accuracy of this diagnosis. On duo nebs and mucolytics. * Rhabdo- mild with peak CK at 5488, now resolving * BRITNEY- presented with creatinine 2.4. Resolved * Metabolic: Sodium improved, 150 today on hypotonic fluids. * Troponin- c/w subendocardial ischemia with ACS * Advanced directives. The patient clearly is DNR per his written advanced directives. He now is more clear regarding not wanting further treatment and wanting to proceed towards natural . I agree with this decision. He does not appear to have the will to continue to live or fight his current medical problems. I believe others and his prior erisa attorney will be on board with this decision. In-patient hospice would be most reasonable, and if accepted he possibly could be transferred to inpatient hospice at [facility] today. 35 min of critical care time spent directly with the patient thus far. Discussed with surgery, hospice, palliative care, nursing, some of the patient' s friends, and the ICU multi disciplinary team. Subjective: Somnolent but easily arousable and responsive. Expressing the wish to not continue aggressive care, to be allowed to proceed towards natural . He does have abdominal pain. Objective: Vital Signs Temp Pulse Resp BP Pulse Ox 37 C 115 H 25 H 125/52 H 91 L 02/18/18 00:00 02/18/18 08:00 02/18/18 08:00 02/18/18 08:00 02/18/18 08:00 Laboratory Results 02/18/18 05:20 02/18/18 05:20 02/17/18 02/18/18 02/19/18 05:59 05:59 05:59 Intake Total 1816 Output Total 1275 1450 Balance -1275 366 PT 17.8 SEC (12.0-15.0) H 02/13/18 04:30 INR 1.45 (0.83-1.16) H 02/13/18 04:30 CXR: No significant change. Hyperinflated, with a small area of infiltrate or old scar at the left base. Physical Exam - Physical Exam General Appearance: thin, other (Somnolent, arouses) EENT: PERRL/EOMI, other (High-flow nasal oxygen in place) Neck: normal inspection (No JVD) Respiratory: lungs clear, decreased breath sounds (At bases), rhonchi (Few rhonchi high in the trachea, throat), No respiratory distress, No rales Abdomen: non-tender (Tender), other (LIBRA drain in place comma decreasing output) , No normal bowel sounds (Decreased) Male Genitalia: other (Dee catheter in place, good urine output) Skin: warm/dry, pallor Extremities: pedal edema (Trace) Neuro/Psych: no motor/sensory deficits (Quite weak), cognition abnormalities ( Lethargic, but appears oriented today, conversant and appropriate.) ICD10 Worksheet Patient Problems: Problems Problem Status Onset Generalized weakness Acute Intra-abdominal free air of unknown etiology Acute BRITNEY (acute kidney injury) Acute
[2018-02-18] MEDS ORDERED: LORazepam 2 MG/ML INJ IVP PRN (14:19)
--- NOTE | 2018-02-18 15:50 | PDIAF ---
- Diagnosis Code Status: Do Not Resuscitate - Medication Management Discharge Medications: Medications to Continue on Transfer NK [No Known Home Meds] 02/12/18 [Last Taken Unknown] Discharge Medications: Refer to the Discharge Home Medication list for PRN reason. - Orders Diet Recommendation: no restrictions on diet Diet Texture: Dysphagia 1 - Pureed, Honey Thick Liquids, Meds Whole in Puree, Meds Crushed in Puree - Follow Up Care Current Providers and Referrals: Patient,NotPresent [Primary Care Provider] - As per Instructions
[2018-02-18] MEDS ORDERED: HYDROmorphONE/DILAUDID 2 MG TAB PO PRN (16:01)
--- NOTE | 2018-04-09 16:08 | GDS ---
[f rep st] DISCHARGE SUMMARY DISCHARGE DIAGNOSES: 1. Peritonitis secondary to ruptured diverticulum. 2. Acute respiratory failure secondary to #1. 3. History of chronic obstructive pulmonary disease. 4. Acute renal insufficiency. 5. Hypernatremia. 6. Cardiac ischemia, acute coronary syndrome. HISTORY: The patient is a very pleasant 77 year old. He was found down at home and was found to hav e a perforated cecum with peritonitis on initial evaluation. He was taken to the operating room by Jose Alejandra. A necrotic cecum was removed. He had peritonitis and gross contamination of the peritone um. He was closed with primary anastomosis. He was supported aggressively. He was initially on the ventilator postoperatively, but was extubated without significant problems. Following extubation, t he patient was very clear regarding his Do Not Resuscitate status. He had well written advanced dire ctives. He wished no further supportive care be done. His family and friends were in agreement with this. He was a devout [employer] and felt that he had been in the process of reaching the end of his life for the last year. His power of bar waiter/waitress agreed with this decision. On the day of discharge, he was transferred to hospice, inpatient, at [facility] in stable condi tion. /[id number]/MODL
--- NOTE | 2018-04-12 07:09 | PQFORM ---
PHYSICIAN QUERY FORM Needs Your Response This query form is being sent to you to assure this patient record is coded properly. Please respond to the question below: SUPERVISOR COMPUTER OPERATIONS QUESTION: Dear Dr. Velez, On 02/13, the day of surgery, Dr. Alejandra documents the patient as having sepsis with WBC up to 15.3, on Invanz and mild metabolic acidosis on mechanical ventilation due to peritonitis from a ruptured diverticulum. On your discharge summary, there is no mention of sepsis. Based on the clinical indicators and your professional judgment, please clarify the status of 'sepsis' by selecting one of the following options below. ___X____ Sepsis due to ruptured diverticulum, present on admission Sepsis due to ruptured diverticulum, not present on admission Sepsis was ruled out Other Unable to determine Thank you for clarifying, ZORA Pizarro HIM Coding INSTRUCTIONS FOR RESPONSE: Answer question by clicking on the "Edit Document" button. Move cursor to area below the stars. When complete, hit "Save." Click on the "Sign" button, then click "Sign" again. Type in your PIN and hit "Enter." MTDD
== END 2018-02-18 17:00 | disposition hospice, home (50) | DRG 853 ==
LOC: EDUNIT# → UNDOADMIN 23:06 → F2N 02-13 04:17
PROVIDERS: ADMIT Surgery; ATTEND Surgery
DX: A41.9 Sepsis, unspecified organism (principal); K57.20 Diverticulitis of large intestine with perforation and abscess without bleeding; J96.01 Acute respiratory failure with hypoxia; J44.9 Chronic obstructive pulmonary disease, unspecified; N17.9 Acute kidney failure, unspecified; M62.82 Rhabdomyolysis; E87.2 Acidosis; R18.8 Other ascites; Z91.19 Patient's noncompliance with other medical treatment and regimen; Z87.891 Personal history of nicotine dependence; Z97.4 Presence of external hearing-aid; Z66 Do not resuscitate; Z51.5 Encounter for palliative care
CPT/HCPCS: 84134-90; 92526-GN; 92610-GN; 96374; 97162-GP; 97166-GO; 97530-GO; 97530-GP; 97535-GO; G8978-GP-CM; G8979-GP-CK; G8987-GO-CM; G8988-GO-CK; G8996-GN-CK; G8997-GN-CH; J0610; J1170; J1335; J1630; J1650; J2270; J2704; J3010; J7608; J7613; Q9967